=== PATIENT | female | born 1965 | race Caucasian/White ===

== ENCOUNTER 2023-03-06 09:31 | Emergency (ER) | payer OTHER ==
[~2023-03-06] VITALS: Ht 157.4 cm; Wt 68.0 kg
[2023-03-06] MEDS ORDERED: TOBRAMYCIN AND D5 ML OP ×3 (13:05→14:57)
== END 2023-03-06 15:12 | disposition home or self-care (01) ==
LOC: ED 09:31
DX: T26.41XA Burn of right eye and adnexa, part unspecified, initial encounter (principal); S05.01XA Injury of conjunctiva and corneal abrasion without foreign body, right eye, initial encounter; Z88.1 Allergy status to other antibiotic agents; X08.8XXA Exposure to other specified smoke, fire and flames, initial encounter; Y93.89 Activity, other specified; Y92.89 Other specified places as the place of occurrence of the external cause; Y99.0 Civilian activity done for income or pay